=== PATIENT | female | born 1995 | race Caucasian/White ===

== ENCOUNTER 2016-09-16 20:43 | Emergency (ER) | payer MEDICAID ==
[2016-09-16 21:03] VITALS: BP 109/64; BMI 30.7
[2016-09-16 22:45] LABS: BILIRUBIN,URINE NEGATIVE (NEGATIVE); BLOOD/HEMOGLOBIN,URINE NEGATIVE (NEGATIVE); GLUCOSE, URINE NEGATIVE (NEGATIVE); KETONES,URINE NEGATIVE (NEGATIVE); LEUKOCYTE ESTERASE ,URINE NEGATIVE (NEGATIVE); NITRITES,URINE NEGATIVE (NEGATIVE); PROTEIN,URINE NEGATIVE (NEGATIVE); UROBILINOGEN,URINE NORMAL (NORMAL)
[2016-09-16 22:55] LABS: APPEARANCE,URINE CLEAR (CLEAR); BACTERIA,URINE NEGATIVE /HPF (NEGATIVE); COLOR,URINE YELLOW (YELLOW); RBC,URINE NONE SEEN /HPF (NEGATIVE); SQUAMOUS EPITHELIAL CELL,UR RARE /HPF (NEGATIVE)
--- NOTE | 2016-09-16 23:01 | DR.GENAD ---
HPI - PCP Primary Care Physician: AKANKSHA - GIOVANNY Comment HPI Comment: Patient reports having contractions q20 min Denies bleeding - Complaint/Symptoms Chief Complaint Doctors Comments: Contractions Chief Complaint:: PT STATES" I'M HAVING CONTRACTIONS EVERY 20 MINUTES IN MY LOWER ABD AND BACK" Self Treatment fo Chief Complaint: PT DUE ON [id number] LMP 05/1016 G 2 P 1 A 0 - Nurses notes reviewed Nurses Notes Review: Yes - Source History Provided: Patient - Mode of Arrival Mode of Arrival: Ambulatory - Timing Onset of Chief Complaint: 09/15/16 PMH - PMH Past Medical History: No Past Surgical History: No - Family History History of Family Medical Conditions: Yes Family Medical History: Diabetes Mellitus, Cancer, Hypertension - Social History Does any household member use tobacco: No Do you use any recreational Drugs:: No Lives With: Family Lives Where: Home - infectious screening In the last 2 months have you had wt loss of >10#?: NO Have you had fever, night sweats or hemotysis?: No Have you traveled outside the country in the last 6 months?: No Isolation: Standard ROS - Review of Systems Constitutional: No Symptoms Reported Eyes: No Symptoms Reported ENTM: No Symptoms Reported Respiratoy: No Symptoms Reported Cardiovascular: No Symptoms Reported Gastrointestinal/Abdominal: No Symptoms Reported Genitourinary: No Symptoms Reported Neurological: No Symptoms Reported Musculoskeletal: No Symptoms Reported Integumentary: No Symptoms Reported Hematologic/Lymphatic: No Symptoms Reported Endocrine: No Symptoms Reported Psychiatric: No Symptoms Reported All Other Systems: Reviewed and Negative PE - Vital Signs Vitals: Temperature 99 F Pulse Rate 81 Respiratory Rate 18 Blood Pressure 109/64 O2 Sat by Pulse Oximetry 99 - General Limitations: No Limitations General Appearance: Alert, In No Apparent Distress - Head Head Exam: Normal Inspection - Eyes Eye exam: Normal Appearance - ENT ENT Exam: Normal Exam External Ear Exam: Normal External Inspection TM/Canal Exam: Bilateral Normal Nose Exam: Normal Nose Exam Mouth Exam: Normal Inspection Throat Exam: Normal Inspection - Neck Neck Exam: Normal Inspection - Chest Chest Inspection: Normal Inspection - Respiratory Respiratory Exam: Normal Lung Sounds Bilat Respiratory Exam: Bilateral Clear to Auscultation - Cardiovascular Cardiovascular Exam: Regular Rate, Normal Rhythm - Abdominal Exam Abdominal Exam: Normal Inspection, Normal Bowel Sounds, Soft - Extremities Extremities Exam: Normal Inspection - Back Back Exam: Normal Inspection - Neurologic Neurological Exam: Alert, Oriented X3 - Psychiatric Psychiatric Exam: Normal Affect, Normal Mood - Skin Skin Exam: Warm, Dry, Intact, Normal Color Course - Education/Counseling Education/Counseling: Patient, Family Educated On: Treatment, Diagnosis, Needs for Follow Up ROR - Labs Reviewed Laboratory Results Reviewed?: Yes Laboratory: Specimen Type Clean catch urine 09/16/16 22:37 Urine Color Yellow (YELLOW) 09/16/16 22:37 Urine Appearance Clear (CLEAR) 09/16/16 22:37 Urine pH 6.0 (5.0 - 8.0) 09/16/16 22:37 Ur Specific [place] 1.020 (1.000-1.030) 09/16/16 22:37 Urine Protein Negative (NEGATIVE) 09/16/16 22:37 Urine Glucose (UA) Negative (NEGATIVE) 09/16/16 22:37 Urine Ketones Negative (NEGATIVE) 09/16/16 22:37 Urine Occult Blood Negative (NEGATIVE) 09/16/16 22:37 Urine Nitrite Negative (NEGATIVE) 09/16/16 22:37 Urine Bilirubin Negative (NEGATIVE) 09/16/16 22:37 Urine Urobilinogen Normal (NORMAL) 09/16/16 22:37 Ur Leukocyte Esterase Negative (NEGATIVE) 09/16/16 22:37 Urine RBC None seen /HPF (NEGATIVE) 09/16/16 22:37 Urine WBC None seen /HPF (NEGATIVE) 09/16/16 22:37 Ur Squamous Epith Cells Rare /HPF (NEGATIVE) 09/16/16 22:37 Urine Bacteria Negative /HPF (NEGATIVE) 09/16/16 22:37 Ur Culture Indicated? No/not indicated 09/16/16 22:37 reviewed - XRAY XRAY Interpreted by: Radiologist XRAY Findings: normal - Diagnosis Discharge Problem: Second trimester - Discharge Plan Condition: Stable - Follow ups/Referrals Follow ups/Referrals: Neli Estrada MD [Primary Care Provider] - 3 days - Instructions Instructions: Medicines During , Second Trimester of Additional Instructions: Follow up w/ OB
--- NOTE | 2016-09-16 23:23 | US ---
Exam: Transabdominal pelvic ultrasound History: Contractions, Comparison: No prior ultrasound for comparison Technique: Grayscale, color, and power Doppler imaging of the pelvis was performed using a transabdo fortunato approach. Findings: There is a single intrauterine fetus. heart rate is 144 beats per min. Stentor yaneth urements were obtained in correlate with a 14 week gestational age. No evidence of hemorrhage. Conclusion: Normal appearing single intrauterine fetus. Reported By:
== END 2016-09-16 23:55 | disposition home or self-care (01) ==
LOC: ER 20:43
DX: O60.12X1 Preterm labor second trimester with preterm delivery second trimester, fetus 1 (principal); Z3A.14 14 weeks gestation of pregnancy
CPT/HCPCS: 76801; 81001; 99282; 99283; 99284

== ENCOUNTER 2016-12-27 11:05 | Emergency (ER) | payer OTHER ==
[2016-12-27 11:16] VITALS: BP 113/56; BMI 34.0
[2016-12-27 13:08] LABS: BILIRUBIN,URINE NEGATIVE (NEGATIVE); BLOOD/HEMOGLOBIN,URINE NEGATIVE (NEGATIVE); GLUCOSE, URINE NEGATIVE (NEGATIVE); KETONES,URINE NEGATIVE (NEGATIVE); LEUKOCYTE ESTERASE ,URINE NEGATIVE (NEGATIVE); NITRITES,URINE NEGATIVE (NEGATIVE); PROTEIN,URINE NEGATIVE (NEGATIVE); UROBILINOGEN,URINE NORMAL (NORMAL)
[2016-12-27 13:19] LABS: APPEARANCE,URINE CLEAR (CLEAR); COLOR,URINE YELLOW (YELLOW)
[2016-12-27 13:20] LABS: BACTERIA,URINE TRACE /HPF (NEGATIVE); RBC,URINE 0-3 /HPF (NEGATIVE); SQUAMOUS EPITHELIAL CELL,UR FEW /HPF (NEGATIVE)
== END 2016-12-27 13:58 | disposition home or self-care (01) ==
LOC: ER 11:05
DX: O60.03 Preterm labor without delivery, third trimester (principal); Z3A.29 29 weeks gestation of pregnancy
CPT/HCPCS: 81001; 99284

== ENCOUNTER 2017-02-11 18:24 | Emergency (ER) | payer OTHER ==
[2017-02-11 18:31] VITALS: BMI 35.6
[2017-02-11 18:58] LABS: BILIRUBIN,URINE NEGATIVE (NEGATIVE); BLOOD/HEMOGLOBIN,URINE NEGATIVE (NEGATIVE); GLUCOSE, URINE NEGATIVE (NEGATIVE); KETONES,URINE 2+ (NEGATIVE); LEUKOCYTE ESTERASE ,URINE 1+ (NEGATIVE); NITRITES,URINE NEGATIVE (NEGATIVE); PH,URINE 6.5 (5.0 - 8.0); PROTEIN,URINE 1+ (NEGATIVE); UROBILINOGEN,URINE 1+ (NORMAL)
[2017-02-11 19:06] LABS: APPEARANCE,URINE CLEAR (CLEAR); BACTERIA,URINE 1+ /HPF (NEGATIVE); COLOR,URINE YELLOW (YELLOW); RBC,URINE NONE SEEN /HPF (NEGATIVE); SQUAMOUS EPITHELIAL CELL,UR FEW /HPF (NEGATIVE)
[2017-02-11 19:15] VITALS: BP 102/62
--- NOTE | 2017-02-13 16:23 | DR.PREG ---
HPI - PCP Primary Care Physician: TONY - Chief Complaint Chief Complaint:: PT STATES" I'VE BEEN HAVING CONTRACTIONS SINCE ABOUT 3 TODAY I 'VE HAD ALOT OF PRESSURE I CAN'T EVEN PEE IT HURTS I ONLY GET A LITTLE BIT OUT" - Source History Provided: Patient - Mode of Arrival Mode of Arrival: Ambulatory - Context : 2 Para: 1 - Timing Onset of Chief Complaint: 02/11/17 Pain: Irregular - Duration Pain Strength: Moderate PMH - PMH Past Medical History: No Past Surgical History: No - Family History History of Family Medical Conditions: Yes Family Medical History: Diabetes Mellitus, Cancer, Hypertension - Social History Does any household member use tobacco: No Alcohol Use: None Do you use any recreational Drugs:: No Lives With: Family Lives Where: Home - infectious screening In the last 2 months have you had wt loss of >10#?: NO Have you had fever, night sweats or hemotysis?: No Have you traveled outside the country in the last 6 months?: No Isolation: Standard PE - Vital Signs Vitals: Temperature 98.4 F Pulse Rate [Left Radial] 96 Pulse Rate 92 Respiratory Rate 18 Blood Pressure [Left Arm] 102/62 Blood Pressure 121/77 O2 Sat by Pulse Oximetry 100 ROR - Labs Reviewed Laboratory: Specimen Type Clean catch urine 02/11/17 18:45 Urine Color Yellow (YELLOW) 02/11/17 18:45 Urine Appearance Clear (CLEAR) 02/11/17 18:45 Urine pH 6.5 (5.0 - 8.0) 02/11/17 18:45 Ur Specific [place] 1.015 (1.000-1.030) 02/11/17 18:45 Urine Protein 1+ (NEGATIVE) 02/11/17 18:45 Urine Glucose (UA) Negative (NEGATIVE) 02/11/17 18:45 Urine Ketones 2+ (NEGATIVE) 02/11/17 18:45 Urine Occult Blood Negative (NEGATIVE) 02/11/17 18:45 Urine Nitrite Negative (NEGATIVE) 02/11/17 18:45 Urine Bilirubin Negative (NEGATIVE) 02/11/17 18:45 Urine Urobilinogen 1+ (NORMAL) 02/11/17 18:45 Ur Leukocyte Esterase 1+ (NEGATIVE) 02/11/17 18:45 Urine RBC None seen /HPF (NEGATIVE) 02/11/17 18:45 Urine WBC 2-4 /HPF (NEGATIVE) 02/11/17 18:45 Ur Squamous Epith Cells Few /HPF (NEGATIVE) 02/11/17 18:45 Urine Bacteria 1+ /HPF (NEGATIVE) 02/11/17 18:45 Ur Culture Indicated? No/not indicated 02/11/17 18:45 - Discharge Plan Disposition: 01 HOME, SELF-CARE Condition: Stable - Follow ups/Referrals Follow ups/Referrals: KAILEE JIMEENZ [Primary Care Provider] - 3 days - Instructions Instructions: Andres Oneil Contractions, Third Trimester of , Easy-to -Read Additional Instructions: INCREASE WATER INTAKE TO A GALLON A DAY. PELVIC REST TIMES 3 DAYS. RETURN TO ER FOR INCREASE IN PAIN, BRIGHT RED BLEEDING, WATER BREAKS, DECREASE IN MOVEMENT. KEEP ALL SCHEDULE APPOINTMENTS WITH .
== END 2017-02-11 20:10 | disposition home or self-care (01) ==
LOC: ER 18:24
DX: O60.03 Preterm labor without delivery, third trimester (principal)
CPT/HCPCS: 81001; 99284

== ENCOUNTER 2017-03-11 10:32 | Inpatient (IN) | payer OTHER ==
[2017-03-13] MEDS ORDERED: D5LR 1L W PITOCIN 10 UNITS/L 10 UNITS/1,000 ML BAG IV ONE (06:36)
[2017-03-13] MEDS ORDERED: LR 1000 ML IV 1,000 ML IV ONE ×3 (06:36→09:16)
[2017-03-13] MEDS ORDERED: FENTANYL INJ 100 mcg ONE (06:37)
[2017-03-13] MEDS ORDERED: PITOCIN ONE (06:37)
[2017-03-13] MEDS ORDERED: D5 1/2 NS 1000 ML 1,000 ML IV ONE (06:38)
[2017-03-13] MEDS ORDERED: D5 1/2 NS 1L W PITOCIN 20 UNITS/L 20 UNITS/1,000 ML BAG IV ONE (06:38)
[2017-03-13] MEDS ORDERED: NAROPIN EPIDURAL 0.2% + FENTANYL 90MCG 60 ML EPI ONE ×2 (06:38→14:14)
[2017-03-13] MEDS: D5 1/2 NS 1000 ML 1,000 ML IV SCH ×2 (06:45→15:41)
[2017-03-13] MEDS ORDERED: D5LR 1L W PITOCIN 10 UNITS/L 10 UNITS/1,000 ML BAG IV PRN (06:56)
[2017-03-13] MEDS ORDERED: MORPHINE SULFATE INJ 2 MG INJ IVP PRN (06:56)
[2017-03-13] MEDS ORDERED: PITOCIN IVP ONE (06:56)
[2017-03-13] MEDS ORDERED: REGLAN INJ 10 MG VIAL IVP PRN ×2 (06:56→16:40)
[2017-03-13] MEDS ORDERED: NUBAIN INJ 200 MG VIAL MULTIDOSE IVP PRN (06:56)
[2017-03-13] MEDS ORDERED: PHENERGAN INJ 25 MG IV PRN ×3 (06:56→16:40)
--- NOTE | 2017-03-13 07:37 | DR.OB ---
OB Quick Note - Assessment/Plan Assessment/Plan: L&D 03/13/17 at 6:55am S-No complaint. O-Afebrile,VSS JBQ=355 with good LTV, +accel, no decel. CTX=occ., mild. CVX=2cm/50%/-1/VTX AROM with clear fluid. IUPC and FSE placed. A-IUP at 39 4/7 weeks for induction P-Begin pitocin induction Anticipate
[2017-03-13] MEDS ORDERED: XYLOCAINE 1 % (PLAIN) ONE (09:42)
[2017-03-13] MEDS: NAROPIN EPIDURAL 0.2% + FENTANYL 90MCG EPI SCH ×2 (10:15→14:48)
[2017-03-13] MEDS ORDERED: NS 1000 ML 1,000 ML ONE (10:44)
--- NOTE | 2017-03-13 11:57 | DR.OB ---
OB Quick Note - Assessment/Plan Assessment/Plan: L&D 03/13/17 at 11:50am Pitocin=2mu/min. S-No complaint. s/p epidural. O-Afebrile,VSS IYM=490 with good LTV, +accel, no decel. Prior episode of hyperstim. resolved. CTX=q 1 1/2 to 3 min., about 35-60mmHg CVX=4-5cm/75%/0 A-IUP at 39 4/7 weeks for induction P-Cont. pitocin induction Anticipate
[2017-03-13] MEDS ORDERED: MOTRIN TAB 800 MG PO PRN (16:12)
--- NOTE | 2017-03-13 16:12 | DR.OB ---
OB Quick Note - Assessment/Plan Assessment/Plan: Delivery Note DEGREASING SOLUTION RECLAIMER 03/13/17 at 3:55pm Patient complete and pushing. Head delivered over intact perineum. Nuchal cord x 1 reduced. Nose and mouth bulb suctioned. Body delivered over intact perineum. Cord clamped x 2 and cut. Infant handed to attendant. Cord sent for gases. Placenta delivered spontaneously / intact / 3 vessel cord. No CVX / vaginal / perineal tears. Viable male infant, VTX/OA, wt=7'2" and 8/9, stable to NBN. Mother stable to RR. SUB=720cy.
[2017-03-13] MEDS ORDERED: AMBIEN PO PRN (16:40)
[2017-03-13] MEDS ORDERED: DERMOPLAST SPRAY TOP PRN (16:40)
[2017-03-13] MEDS ORDERED: MILK OF MAGNESIA PO PRN (16:40)
[2017-03-13] MEDS ORDERED: ADACEL TDaP IM ONE ×2 (16:40→18:51)
[2017-03-13] MEDS ORDERED: D5 1/2 NS 1000 ML 1,000 ML with PITOCIN 20 UNITS IV SCH ×4 (17:00)
[2017-03-13] MEDS: ZANTAC PO SCH (20:33)
[2017-03-14] MEDS: MOTRIN TAB 800 MG PO PRN ×3 (02:46→20:25)
[2017-03-14 05:34] LABS: HEMATOCRIT 32.9 % (36.0-47.0); HEMOGLOBIN 11.3 g/dL (12.0-16.0)
[2017-03-14] MEDS: PRENATAL PLUS PO SCH (09:20)
[2017-03-14] MEDS: ZANTAC PO SCH ×3 (09:20→20:25)
[2017-03-15] MEDS: MOTRIN TAB 800 MG PO PRN (05:17)
[2017-03-15] MEDS: PRENATAL PLUS PO SCH (09:37)
[2017-03-15] MEDS: ZANTAC PO SCH ×2 (09:37→09:38)
[2017-03-15 13:46] VITALS: BP 116/60
== END 2017-03-15 14:45 | disposition home or self-care (01) | DRG 775 ==
LOC: LD 03-13 06:30 → MED/SURG 03-13 17:03
PROVIDERS: ADMIT Specialist; ATTEND Specialist
PROC: 10E0XZZ Delivery of Products of Conception, External Approach (ICD-10-PCS; principal; 2017-03-13)
PROC: 10907ZC Drainage of Amniotic Fluid, Therapeutic from Products of Conception, Via Natural or Artificial Opening (ICD-10-PCS; 2017-03-13)
PROC: 3E033VJ Introduction of Other Hormone into Peripheral Vein, Percutaneous Approach (ICD-10-PCS; 2017-03-13)
PROC: 00HU33Z Insertion of Infusion Device into Spinal Canal, Percutaneous Approach (ICD-10-PCS; 2017-03-13)
PROC: 3E0234Z Introduction of Serum, Toxoid and Vaccine into Muscle, Percutaneous Approach (ICD-10-PCS; 2017-03-13)
DX: O99.810 Abnormal glucose complicating pregnancy (principal); Z37.0 Single live birth; Z3A.39 39 weeks gestation of pregnancy; Z23 Encounter for immunization; F12.90 Cannabis use, unspecified, uncomplicated
CPT/HCPCS: 09167; 36415; 59409; 80048; 80307; 81001; 85014; 85018; 85025; 86592; 86850; 86900; 86901; A4216; A4222; S0197; G0434; J2001; J2590; J3010; J7042; J7120

== ENCOUNTER → 2017-03-12 | Outpatient (CLI) | payer OTHER ==
[2017-02-11 19:15] VITALS: BP 102/62
[2017-03-12 10:38] LABS: BLOOD UREA NITROGEN 8 mg/dL (7-18); CALCIUM 8.1 mg/dL (8.5-10.1); CARBON DIOXIDE 23.8 mmol/L (21-32); CHLORIDE 106 mmol/L (98-107); COR NA(FOR HYPERGLY) 138 mmol/L (136-145); SODIUM 137 mmol/L (136-145)
[2017-03-12 10:43] LABS: CREATININE 0.76 mg/dL (0.55-1.02); eGFR BLACK RACES > 60 (>60); eGFR NON BLACK RACES > 60 (>60)
[2017-03-12 10:46] LABS: BILIRUBIN,URINE NEGATIVE (NEGATIVE); BLOOD/HEMOGLOBIN,URINE 1+ (NEGATIVE); GLUCOSE, URINE NEGATIVE (NEGATIVE); KETONES,URINE NEGATIVE (NEGATIVE); LEUKOCYTE ESTERASE ,URINE 3+ (NEGATIVE); NITRITES,URINE NEGATIVE (NEGATIVE); PROTEIN,URINE NEGATIVE (NEGATIVE); UROBILINOGEN,URINE NORMAL (NORMAL)
[2017-03-12 11:06] LABS: APPEARANCE,URINE SLIGHTLY HAZY (CLEAR); COLOR,URINE YELLOW (YELLOW); SQUAMOUS EPITHELIAL CELL,UR MANY /HPF (NEGATIVE)
[2017-03-12 11:07] LABS: BACTERIA,URINE TRACE /HPF (NEGATIVE)
[2017-03-12 11:23] LABS: BASOPHILS % (AUTO) 0.2 % (0.2-1.0); EOSINOPHILS # (AUTO) 0.2 x10^3/uL (0.0-0.2); EOSINOPHILS % (AUTO) 1.8 % (0.9-2.9); HEMATOCRIT 37.8 % (36.0-47.0); HEMOGLOBIN 12.9 g/dL (12.0-16.0); LYMPHOCYTES % (AUTO) 16.7 % (21.0-51.0); MEAN CORPUSCULAR HEMOGLOBIN 31.9 pg (27.0-34.0); MEAN CORPUSCULAR HGB CONC 34.3 g/dL (33.0-35.0); MEAN PLATELET VOLUME 10.5 fL (7.4-11.0); MONOCYTES # (AUTO) 0.3 x10^3/uL (0.3-0.8); MONOCYTES % (AUTO) 2.3 % (0.0-13.0); NEUTROPHILS # (AUTO) 9.7 x10^3/uL (2.2-4.8); PLATELET COUNT 141 X10^3/uL (150.0-450.0); RED BLOOD COUNT 4.06 X10^6/uL (3.5-5.4); RED CELL DISTRIBUTION WIDTH 12.9 % (11.6-16.5); WHITE BLOOD COUNT 12.3 X10^3/uL (3.6-10.0)
== END | disposition home or self-care (01) ==
LOC: LAB 09:43
PROVIDERS: ATTEND Specialist
DX: Z01.818 Encounter for other preprocedural examination (principal); Z01.812 Encounter for preprocedural laboratory examination
CPT/HCPCS: 36415; 80048; 81001; 85025; 86592; 86850; 86900; 86901